=== PATIENT | female | born 1960 | race African-American/Black ===

== ENCOUNTER → 2025-03-11 | Day surgery (SDC) | payer MEDICARE ==
[2025-03-10 11:36] LABS: BASOPHILS % 0.4 % (0.0-1.0); EOSINOPHILS # (AUTO) 0.1 (0.0-0.4); EOSINOPHILS % 1.5 % (0.0-6.0); HEMATOCRIT 29.4 % (34.2-44.1); HEMOGLOBIN 9.2 g/dL (12.0-16.0); LYMPHOCYTES # (AUTO) 1.3 (1.0-3.2); LYMPHOCYTES % 19.6 % (18.0-39.1); MEAN CORPUSCULAR HEMOGLOBIN 32.6 pg (28-32); MEAN CORPUSCULAR HGB CONC 31.3 g/dL (31-35); MEAN CORPUSCULAR VOLUME 104.3 fL (81-99); MONOCYTES # (AUTO) 0.7 (0.2-0.8); MONOCYTES % 9.6 % (4.4-11.3); NEUTROPHILS # (AUTO) 4.7 (2.1-6.9); NEUTROPHILS % 68.6 % (38.7-80.0); PLATELET COUNT 168 x10e3/uL (140-360); RED BLOOD COUNT 2.82 x10e6/uL (3.6-5.1); RED CELL DISTRIBUTION WIDTH 13.3 % (11.7-14.4); WHITE BLOOD COUNT 6.84 x10e3/uL (4.8-10.8)
[2025-03-10 11:53] LABS: INR 0.9
[2025-03-10 11:54] LABS: PARTIAL THROMBOPLASTIN TIME 27.5 seconds (23.8-35.5)
[2025-03-10 12:00] LABS: ANION GAP 13.7 mmol/L (8-16); CALCIUM 9.1 mg/dL (8.4-10.2); CREATININE, SERUM 2.52 mg/dL (0.57-1.11); POTASSIUM 4.7 mmol/L (3.5-5.1)
[~2025-03-11] MED LIST: ACETAMINOPHEN-1 EAC4 PO; ALLOPURINOL100 MG PO; CEFDINIR300 MG PO; ENTRESTO 97 MG1 EACH PO; GLIPIZIDE5 MG PO; LIDOCAINE HCL 2% LOCAL INJ 5 ML SDV VIAL INJ ONE; LINZESS145 MCG PO; METHENAMINE HIPP1 GM PO; METOLAZONE5 MG PO; METOPROLOL TAR100 MG PO; MIDAZOLAM HCL 2 MG/2 ML VIAL ONE; MOUNJARO10 MG/0.5 SC; NEURONTIN300 MG PO; NEXIUM40 MG PO; PROPOFOL IV EMULSION 10 MG/ML 20 ML VIAL ONE; TORSEMIDE100 MG PO; VITAMIN B-121000 MCG PO; VITAMIN C1000 MG PO; VITAMIN D3125 MCG/1; VITAMIN D31250 MCG PO; VITAMIN E400 UNI1 PO; ZINC PO
[2025-03-11] MEDS: LACTATED RINGER'S 1,000 ML ONE (15:23)
[2025-03-11 16:44] VITALS: BP 133/72; PULSE 77; RESP 18; O2SAT 98
== END | disposition home or self-care (01) ==
LOC: OR 14:01
PROVIDERS: ATTEND Internal Medicine Gastroenterology
DX: K59.09 Other constipation (principal); K62.89 Other specified diseases of anus and rectum; K21.9 Gastro-esophageal reflux disease without esophagitis; R10.84 Generalized abdominal pain; E11.22 Type 2 diabetes mellitus with diabetic chronic kidney disease; I13.0 Hypertensive heart and chronic kidney disease with heart failure and stage 1 through stage 4 chronic kidney disease, or unspecified chronic kidney disease; I50.9 Heart failure, unspecified; N18.4 Chronic kidney disease, stage 4 (severe); Z79.85 Long-term (current) use of injectable non-insulin antidiabetic drugs; Z79.84 Long term (current) use of oral hypoglycemic drugs; I25.2 Old myocardial infarction; I27.20 Pulmonary hypertension, unspecified; Z95.810 Presence of automatic (implantable) cardiac defibrillator; Z01.810 Encounter for preprocedural cardiovascular examination; Z01.812 Encounter for preprocedural laboratory examination; Z79.899 Other long term (current) drug therapy
CPT/HCPCS: 36415 ×2; 45380; 80048; 82948; 85025; 85610; 85730; 88305; 93005; J2003; J2250; J2704; J7121